=== PATIENT | female | born 1965 | race Caucasian/White ===

== ENCOUNTER → 2022-09-28 08:14 | Outpatient (CLI) | payer OTHER, SELFPAY | PROVIDERS: Visit Provider Physician Assistant Medical | DX: J02.9 Acute pharyngitis, unspecified (principal) | CPT/HCPCS: 87070 ==

== ENCOUNTER → 2024-06-23 10:15 | Outpatient (CLI) | payer OTHER, SELFPAY ==
[2024-06-23 10:45] LABS: Add Manual Diff / Slide Review NO; Basophils Absolute Auto 0 /uL (0-100); Basophils Percent Auto 0.6 % (0-2); Eosinophils Absolute Auto 100 /uL (0-450); Eosinophils Percent Auto 2.1 % (2-4); Hematocrit 41.2 % (36-46); Hemoglobin 13.5 g/dL (12.0-16.0); Lymphocytes Absolute Auto 2100 /uL (1100-4500); Lymphocytes Percent Auto 33.7 % (25-40); Mean Corpuscular HGB Conc 32.9 % (30-36); Mean Corpuscular Volume 88.2 fL (80-100); Monocytes Absolute Auto 400 /uL (0-900); Monocytes Percent Auto 6.5 % (3-14); Neutrophils Absolute Auto 3600 /uL (1500-7000); Neutrophils Percent Auto 57.1 % (50-75); Platelet Count 213 X10^3/uL (150-400); Red Blood Cell Count 4.67 X10^6/uL (4.0-5.2); Red Cell Distribution Width 14.5 % (11.6-14.8); White Blood Cell Count 6.3 X10^3/uL (4.5-11.0)
[2024-06-23 11:34] LABS: Alanine Aminotransferase 18 IU/L (<35); Albumin 4.4 g/dL (3.5-5.0); Albumin Globulin Ratio 1.4 (1.0-2.8); Alkaline Phosphatase 111 U/L (38-126); Aspartate Aminotransferase 21 IU/L (14-36); BUN Creatinine Ratio 18.5 (6-22); Bilirubin Total 0.7 mg/dL (0.2-1.3); Blood Urea Nitrogen 17 mg/dL (7-17); Calcium 10.5 mg/dL (8.4-10.2); Carbon Dioxide 21 mmol/L (22-32); Chloride 108 mmol/L (98-107); Cholesterol 237 mg/dL (140-199); Estimated Glomerular Filt Rate > 60 mL/min (>60); Globulin 3.1 g/dL (1.7-4.1); Glucose 139 mg/dL (70-100); HDL Cholesterol 92 mg/dL (40-60); HEMOLYSIS < 15 (0-50); LDL Cholesterol Calculated 129 mg/dL (<100); Potassium 4.6 mmol/L (3.4-5.1); Sodium 139 mmol/L (137-145); Total Protein 7.5 g/dL (6.3-8.2); Triglycerides 80 mg/dL (35-150)
[2024-06-23 12:04] LABS: TSH w/ Reflex to FT4 2.56 uIU/mL (0.47-4.68)
[2024-06-23 12:11] LABS: Ferritin 5 ng/mL (11-264)
[2024-06-23 12:39] LABS: Folate 7.5 ng/mL (2.76-20.0); Vitamin B12 218 pg/mL (239-931)
[2024-06-25 11:36] LABS: Fecal Immunochemical Test Negative (Negative)
[2024-06-26 21:08] LABS: Calcium 10.4 mg/dL (8.7-10.2); Parathyroid Hormone, Intact 104 pg/mL (15-65)
== END ==
PROVIDERS: PCP Family Medicine; Referring Provider Family Medicine; Visit Provider Family Medicine
DX: Z00.00 Encounter for general adult medical examination without abnormal findings (principal); E04.1 Nontoxic single thyroid nodule; D64.9 Anemia, unspecified; E78.00 Pure hypercholesterolemia, unspecified; E53.8 Deficiency of other specified B group vitamins; R53.83 Other fatigue; Z76.89 Persons encountering health services in other specified circumstances; Z12.11 Encounter for screening for malignant neoplasm of colon
CPT/HCPCS: 36415; 80053; 80061; 82274; 82310; 82607; 82728; 82746; 83970; 84443; 85025; 86140

== ENCOUNTER → 2024-08-07 09:44 | Outpatient (CLI) | payer OTHER, SELFPAY ==
[2024-08-07 11:17] LABS: Vitamin D 25 Hydroxy (D3) 22.6 ng/mL (30.0-100.0)
[2024-08-08 13:36] LABS: Calcium 10.2 mg/dL (8.7-10.2); Parathyroid Hormone, Intact 109 pg/mL (15-65)
== END ==
PROVIDERS: PCP Family Medicine; Referring Provider Family Medicine; Visit Provider Family Medicine
DX: E83.52 Hypercalcemia (principal); E04.1 Nontoxic single thyroid nodule; E05.90 Thyrotoxicosis, unspecified without thyrotoxic crisis or storm
CPT/HCPCS: 36415; 82306; 82310; 83970

== ENCOUNTER → 2024-09-24 10:55 | Outpatient (CLI) | payer OTHER, SELFPAY ==
--- NOTE | 2024-09-24 10:56 | DI.MG.S_ITS ---
BILATERAL DIGITAL SCREENING MAMMOGRAM 3D/2D WITH CAD: 09/24/2024 CLINICAL: Routine screening. No prior exams were available for comparison. There are scattered areas of fibroglandular density (category b / 25%-50% glandular tissue). Current study was also evaluated with a Computer Aided Detection (CAD) system. No significant masses, calcifications, or other findings are seen in either breast. IMPRESSION: NEGATIVE There is no mammographic evidence of malignancy. A 1 year screening mammogram is recommended. Based on the Tyrer Cuzick model (a risk assessment model) the patient's lifetime risk is 6.2% and her 10 year risk is 2.3%. According to the ACR, ACS, and NCCN guidelines, an annual breast MRI exam along with mammogram is recommended if the patient's lifetime risk is 20% or greater. This exam was interpreted at Station ID: [id number]. NOTE: For mammograms, a report in lay terms will be sent to the patient. Approximately 15% of breast malignancies will not be visualized mammographically. In the management of a palpable breast mass, a negative mammogram must not discourage biopsy of a clinically suspicious lesion. Electronically Signed By: Irma Carroll M.D., Ph.D. saman/cayla:09/24/2024 11:35:05 letter sent: Normal Exam ACR BI-RADS Category 1: Negative
== END ==
PROVIDERS: PCP Family Medicine; Referring Provider Family Medicine; Visit Provider Family Medicine
DX: Z12.31 Encounter for screening mammogram for malignant neoplasm of breast (principal)
CPT/HCPCS: 77063; 77067

== ENCOUNTER → 2025-08-08 08:46 | Outpatient (CLI) | payer OTHER, SELFPAY ==
[2025-08-08 09:48] LABS: Hematocrit 40.3 % (36-46); Hemoglobin 13.6 g/dL (12.0-16.0); Mean Corpuscular HGB Conc 33.7 % (30-36); Mean Corpuscular Hemoglobin 29.2 PG (26-34); Mean Corpuscular Volume 86.6 fL (80-100); Platelet Count 258 X10^3/uL (150-400)
[2025-08-08 11:10] LABS: HEMOLYSIS < 15 (0-50); Iron 86 ug/dL (37-170)
[2025-08-08 11:15] LABS: Alanine Aminotransferase 31 IU/L (<35); Albumin 4.4 g/dL (3.5-5.0); Albumin Globulin Ratio 1.3 (1.0-2.8); Alkaline Phosphatase 100 U/L (38-126); Blood Urea Nitrogen 14 mg/dL (7-17); Calcium 10.4 mg/dL (8.4-10.2); Carbon Dioxide 24 mmol/L (22-32); Chloride 106 mmol/L (98-107); Cholesterol 214 mg/dL (140-199); Estimated Glomerular Filt Rate > 60 mL/min (>60); Globulin 3.3 g/dL (1.7-4.1); Glucose 90 mg/dL (70-99); HDL Cholesterol 74 mg/dL (40-60); HEMOLYSIS < 15 (0-50); Potassium 4.6 mmol/L (3.4-5.1); Sodium 139 mmol/L (137-145); Total Protein 7.7 g/dL (6.3-8.2); Triglycerides 121 mg/dL (35-150)
[2025-08-08 11:23] LABS: Percent Iron Saturation 23 % (15-50); Total Iron Binding Capacity 372 ug/dL (265-497); Transferrin 328 mg/dL (206-381)
[2025-08-08 11:50] LABS: Ferritin 6 ng/mL (11-264)
[2025-08-08 12:03] LABS: Vitamin B12 384 pg/mL (239-931)
== END ==
PROVIDERS: PCP Family Medicine; Referring Provider Family Medicine; Visit Provider Family Medicine
DX: Z00.01 Encounter for general adult medical examination with abnormal findings (principal); E53.8 Deficiency of other specified B group vitamins; E21.3 Hyperparathyroidism, unspecified; E61.1 Iron deficiency
CPT/HCPCS: 36415; 80053; 80061; 82274; 82310; 82607; 82728; 83540; 83550; 83970; 85027

== ENCOUNTER → 2025-10-03 13:43 | Outpatient (CLI) | payer OTHER, SELFPAY ==
--- NOTE | 2025-10-03 13:45 | DI.US.S_ITS ---
PROCEDURE: US THYROID INDICATIONS: Thyroid Nodule TECHNIQUE: Real-time scanning was performed of the thyroid gland, with image documentation. COMPARISON: [facility], US, US THYROID, 10/12/2023, 13:16. FINDINGS: Thyroid: Right lobe measures 5.4 x 1.9 x 1.8 cm. Left lobe measures 4.7 x 1.6 x 1.7 cm. Isthmus is 4 cm thick. Echotexture is heterogeneous. Noticing thyroid nodule identified on today's examination. Hypoechoic region along the posterior margin of the right thyroid lobe measures 2.0 x 0.5 x 0.7 cm, similar to prior. IMPRESSION: Diffusely heterogeneous thyroid, consistent with thyroiditis. The previously described left thyroid nodule is no longer visualized. The diffuse echogenicity of the thyroid may obscure this nodule. Hypoechoic region posterior to the right thyroid lobe is stable from prior, but indeterminate etiology. Consider neck CT with contrast for better characterization. ACR TI-RADS definitions and recommendations: TI-RADS 1 (benign): 0 points. FNA not needed. TI-RADS 2 (not suspicious): 2 points. FNA not needed. TI-RADS 3: 3 points. * FNA if 2.5 cm or larger, follow up if 1.5 cm or larger (at 1, 3, and 5 years). TI-RADS 4: 4-6 points. * FNA if 1.5 cm or larger, follow up if 1 cm or larger (at 1, 2, 3, and 5 years). TI-RADS 5: 7 points or more. * FNA if 1 cm or larger, follow up if 0.5 cm or larger (every year for 5 years). Dictated by: Sharif Joseph M.D. on 10/04/2025 at 14:21 Approved by: Sharif Joseph M.D. on 10/04/2025 at 14:24
--- NOTE | 2025-10-03 13:45 | DI.RAD.S_ITS ---
PROCEDURE: XR DEXA AXIAL SKELETON INDICATIONS: Osteoporosis COMPARISON: None. FINDINGS: Lumbar Spine: Bone mineral density 0.752 g/cm2, T score -2.7. Left Femoral Neck: Bone mineral density 0.606 g/cm2, T score -2.2. Left Hip: Bone mineral density 0.644 g/cm2, T score -2.4. Fracture Risk Calculation (when applicable): 10-year fracture risk of a major osteoporotic fracture 9.7 percent and of a hip fracture 1.4 percent. (T score greater or equal to -1.0 to: NORMAL) (T score from -1.1 to -2.4: OSTEOPENIA) (T score less than or equal to -2.5: OSTEOPOROSIS) IMPRESSION: Osteoporosis by WHO classification. Follow-up guidelines as follows: Osteoporosis: Consider a repeat DEXA and Vertebral Fracture Assessment (VFA) exam in 2 years or sooner if medically necessary, to reassess this patient's status. Osteopenia: Consider a repeat DEXA in 2-3 years to reassess this patient's status, or if there is a new clinical indication. Normal: Consider a repeat DEXA in 5 years or sooner, or if there is a new clinical indication. All treatment decisions require clinical judgment and consideration of individual patient factors, including patient preferences, comorbidities, previous drug use, risk factors not captured in the FRAX model (e.g., frailty, falls, vitamin D deficiency, increased bone turnover, interval significant decline in bone density ) and possible under- or over-estimation of fracture risk by FRAX. In addition, the NOF Guide recommends that FDA-approved medical therapies be considered in postmenopausal women and men age >= 50 years with a: * Hip or vertebral (clinical or morphometric) fracture * T-score of <=-2.5 at the spine or hip * Ten-year fracture probability by FRAX of >= 3% for hip fracture or >=20% for major osteoporotic fracture. Dictated by: Tono Goodman M.D. on 10/05/2025 at 13:38 Approved by: Tono Goodman M.D. on 10/05/2025 at 13:39
== END ==
PROVIDERS: PCP Family Medicine; Referring Provider Family Medicine; Visit Provider Family Medicine
DX: M81.0 Age-related osteoporosis without current pathological fracture (principal); E04.1 Nontoxic single thyroid nodule
CPT/HCPCS: 76536; 77080